=== PATIENT | female | born 1975 | race Caucasian/White ===

== ENCOUNTER 2021-04-04 07:15 | Inpatient (IN) | payer OTHER ==
[~2021-04-04] VITALS: Ht 160 cm; Wt 61.2 kg
== END 2021-04-14 12:32 | disposition home or self-care (01) | DRG 743 ==
LOC: ADM 07:15 → EDSTATUS 04-08 10:15 → ADM 04-08 10:15 → SURH 04-11 10:15 → O/R 04-11 12:05 → OB/GYN 04-11 12:05 → SURH 04-11 20:55 → OB/GYN 04-11 21:38
PROVIDERS: ADMIT Obstetrics & Gynecology Obstetrics; ATTEND Obstetrics & Gynecology Obstetrics
PROC: 0UT90ZZ Resection of Uterus, Open Approach (ICD-10-PCS; principal; 2021-04-11 14:30)
DX: D25.2 Subserosal leiomyoma of uterus (principal); N72 Inflammatory disease of cervix uteri